=== PATIENT | male | born 1980 ===

== ENCOUNTER 2019-03-27 15:57 | Emergency (ER) | payer OTHER ==
[~2019-03-27] VITALS: Ht 172.7 cm; Wt 97.5 kg
[~2019-03-27 15:57] MED LIST: CEPH500 PO; CITA10S PO; METO25ER PO; OXYACE5T PO; TRAZ50 PO
== END 2019-03-27 16:42 | disposition home or self-care (01) ==
LOC: ER 15:57
DX: S60.131A Contusion of right middle finger with damage to nail, initial encounter (principal); W22.8XXA Striking against or struck by other objects, initial encounter; Z79.899 Other long term (current) drug therapy; I10 Essential (primary) hypertension; G47.00 Insomnia, unspecified; Z87.891 Personal history of nicotine dependence
CPT/HCPCS: 11740; 99283-25